=== PATIENT | female | born 1960 | race Caucasian/White ===

== ENCOUNTER 2017-02-24 07:39 | Outpatient (RCR) | payer OTHER ==
[2013-09-27 17:30] VITALS: BMI 20.2
[2017-02-24 08:43] VITALS: BP 119/82
== END 2017-02-28 13:06 | disposition home or self-care (01) ==
LOC: SPU 07:39
PROVIDERS: ATTEND Family Medicine
DX: E34.9 Endocrine disorder, unspecified (principal)
CPT/HCPCS: 36415; 82670; 84403

== ENCOUNTER → 2017-02-24 | Outpatient (CLI) | payer OTHER ==
[2013-09-27 17:30] VITALS: BMI 20.2
[~2017-02-24] MED LIST: ARI2 PO; ASCO-191 PO; CALC500T6 PO; CHOL500045 PO; CYCL1DRO6 OP; DES100PT PO; IBUP-56 PO; LACT1CAP6 PO; LAMOT150PT PO; LOR1 PO; LORA-802 PO; MAGN400C PO; MULT-885 PO; OMEG-11 PO; OMEG-23 PO; RANI-324 PO; RANI75TA5 PO; VITA1CAP46 PO; ZALE10CA95 PO
[2017-02-24 08:51] LABS: PLATELET COUNT, AUTOMATED 209 K/uL (150-450)
== END ==
LOC: SPU 08:28
PROVIDERS: ATTEND Nurse Practitioner Primary Care
DX: D50.9 Iron deficiency anemia, unspecified (principal)
CPT/HCPCS: 82040; 82247; 82310; 82374; 82435; 82565; 82728; 82947; 83540; 83550; 84075; 84132; 84155; 84295; 84450; 84460; 84520; 85025

== ENCOUNTER → 2017-04-02 | Outpatient (CLI) | payer OTHER ==
[2013-09-27 17:30] VITALS: BMI 20.2
--- NOTE | 2017-04-03 09:05 | RADIOLOGY IMAGING REPORT ---
FACILITY: [facility] [place] PATIENT NAME: LOLITA FELIPE : [id number] MR: [id number]: [id number] EXAM DATE: [id number] ORDERING PHYSICIAN: JHONY NORTON TECHNOLOGIST: Petrona Rangel PROCEDURE:BILATERAL DIGITAL SCREENING MAMMOGRAM WITH CAD ASSISTED INTERPRETATION & 3D TOMOSYNTHESIS COMPARISON:Prior mammograms 12/18/15, 04/19/13, 06/26/11, 06/17/11 INDICATIONS:SCREENING FINDINGS: Moderately heterogeneous fibroglandular tissue is seen throughout the breasts. The parenchymal pattern has remained stable allowing for difference in mammographic technique & patient positioning. There is no evidence of malignant appearing mass, malignant appearing calcifications or other secondary sign of malignancy in either breast. DIAGNOSTIC CATEGORY 1--NEGATIVE. RECOMMENDATIONS: ROUTINE MAMMOGRAM AND CLINICAL EVALUATION. IMPRESSION: BIRADS 1: Negative No significant abnormality is seen Dictated by: Argentina Morillo M.D. on 04/02/2017 at 17:03 Transcribed by: FIX on 04/03/2017 at 8:05 Approved by: Argentina Morillo M.D. on 04/03/2017 at 9:04 [facility]
== END ==
LOC: MAMO 00:13
PROVIDERS: ATTEND Nurse Practitioner Primary Care
DX: Z12.31 Encounter for screening mammogram for malignant neoplasm of breast (principal)
CPT/HCPCS: 77063; 77067

== ENCOUNTER 2017-05-16 09:12 | Emergency (ER) | payer OTHER ==
[2013-09-27 17:30] VITALS: Wt 61.7 kg
[2017-05-16 09:12] VITALS: BP 153/83
--- NOTE | 2017-05-16 09:25 | ER Report ---
History and Physical Time Seen By MD: 09:25 Hx. of Stated Complaint: pt reports needle stick, known source, ~0800 today- L thumb HPI/ROS CHIEF COMPLAINT: body fluid exposure, employee HISTORY OF PRESENT ILLNESS: This is a 56 year old female. She had a needle stick to her left thumb this morning after doing a blood draw on a patient. Butterfly needle, radial side of thumb. Has had Hep B vaccine and is a non- responder. Allergies: Coded Allergies: clarithromycin (Verified Allergy, Unknown, NAUSEA, 05/16/17) levofloxacin (Verified Allergy, Unknown, 05/16/17) Home Meds Reported Medications Ibuprofen (IBUPROFEN) 200 Mg Tablet, 2 TAB PO Q6H Y for PAIN/HEADACHE, TAB 07/10/16 Loratadine (CLARITIN) 10 Mg Tablet, 10 MG PO PRN 07/10/16 Ranitidine Hcl (ZANTAC) 150 Mg Tablet, 150 MG PO BID, TAB 07/10/16 [place]-3 Fatty Acids/Fish Oil (FISH OIL 1,000 MG SOFTGEL) 1 Each Capsule, 2 EACH PO, CAPSULE 07/10/16 Calcium Carbonate (CALCIUM) 500 Mg Tablet, 2000 MG PO DAILY 12/05/15 Cholecalciferol (Vitamin D3) (VITAMIN D) 5,000 Unit Tablet, 1 TAB PO QDAY, CAPSULE 12/05/15 Ascorbic Acid (VITAMIN C) 1,000 Mg Tablet, 1 TAB PO DAILY, TAB 12/05/15 Magnesium Oxide (MAGNESIUM) 400 Mg Capsule, 1 CAP PO QDAY, CAPSULE 12/05/15 Lactobacillus Combination No.4 (PROBIOTIC) 1 Each Capsule, 1 CAP PO QDAY, CAPSULE 12/05/15 Vitamin B Complex (VITAMIN B COMPLEX) 1 Each Capsule, 1 CAP PO QDAY, CAPSULE 12/05/15 Zaleplon (SONATA) 10 Mg Capsule, 1 TAB PO HS Y for INSOMNIA, CAPSULE 12/05/15 Lamotrigine (LAMICTAL) 150 Mg Tablet, 1 TAB PO DAILY 12/05/15 Desvenlafaxine Succinate (PRISTIQ ER) 100 Mg Tabcr, 100 MG PO DAILY 12/15/13 Reviewed Nurses Notes: Yes Hx Smoking: No Smoking Status: Never Smoker Exposure to Second Hand Smoke?: No Hx Substance Use Disorder: No Hx Alcohol Use: Yes Constitutional Vital Sign - Last 24 Hours 05/16/17 09:12 Temp 98.9 Pulse 77 Resp 16 B/P (MAP) 153/83 Pulse Ox 96 O2 Delivery Room Air Physical Exam General: Alert, no distress. Skin: Thumb with bandage, removed and site of small puncture difficult to see. Medical Decision Making ED Course/Re-evaluation ED Course Did not recommend taking any post-exposure prophylactic medicine. Will get blood from both the patient here and the source patient will need to be called to get blood work done. Decision to Disposition Date: May 16, 2017 Decision to Disposition Time: 09:38 Depart Departure Latest Vital Signs Vital Signs Date Time Temp Pulse Resp B/P (MAP) Pulse Ox O2 Delivery O2 Flow Rate FiO2 05/16/17 09:12 98.9 77 16 153/83 96 Room Air Impression: Primary Impression: Employee exposure to body fluids Condition: Improved Disposition: HOME OR SELF-CARE Referrals: JHONY NORTON DNP, [employer] (PCP) Patient Instructions: Body Substance Exposure (ED) Additional Instructions: Follow-up with employee health for further testing. No post-exposure prophylaxis needed unless unable to get the blood tests from the source patients. You are able to return to work at this time. MADELINE KING MD May 16, 2017 09:25
== END 2017-05-16 09:45 | disposition home or self-care (01) ==
LOC: ER 09:13
DX: Z77.21 Contact with and (suspected) exposure to potentially hazardous body fluids (principal); Y99.0 Civilian activity done for income or pay
CPT/HCPCS: 36415; 99281

== ENCOUNTER 2017-06-10 10:15 | Outpatient (RCR) | payer OTHER ==
[2013-09-27 17:30] VITALS: BMI 20.2
[2017-06-10 13:02] VITALS: BP 124/83
== END 2017-07-09 14:16 | disposition home or self-care (01) ==
LOC: SPU 10:15
PROVIDERS: ATTEND Nurse Practitioner Primary Care
DX: E61.1 Iron deficiency (principal)
CPT/HCPCS: 36415; 82728; 83540; 83550

== ENCOUNTER → 2017-06-10 | Outpatient (CLI) | payer OTHER ==
[2013-09-27 17:30] VITALS: BMI 20.2
[~2017-06-10] MED LIST changes: -RANI-324 PO; +RANI-366 PO
== END ==
LOC: SPU 13:10
PROVIDERS: ATTEND Obstetrics & Gynecology
DX: E34.9 Endocrine disorder, unspecified (principal)
CPT/HCPCS: 82670; 84403

== ENCOUNTER → 2017-06-17 | Outpatient (REF) ==
[2013-09-27 17:30] VITALS: BMI 20.2
[2017-06-17 10:06] LABS: LDL CHOLESTEROL 96 mg/dl
== END ==
DX: Z02.9 Encounter for administrative examinations, unspecified (principal)

== ENCOUNTER → 2017-08-05 | Outpatient (CLI) | payer OTHER ==
[2013-09-27 17:30] VITALS: BMI 20.2
[~2017-08-05] MED LIST changes: +[UNRECOGNIZED DRUG - OTHER]
== END ==
LOC: RESP 01:27
PROVIDERS: ATTEND Nurse Practitioner Primary Care
DX: I34.0 Nonrheumatic mitral (valve) insufficiency (principal); I36.1 Nonrheumatic tricuspid (valve) insufficiency
CPT/HCPCS: 93017; 93325; 93350

== ENCOUNTER 2017-09-08 08:49 | Outpatient (RCR) | payer OTHER ==
[2013-09-27 17:30] VITALS: BMI 20.2
[~2017-09-08 08:49] MED LIST changes: +MODA100T5 PO
[2017-09-08 09:43] VITALS: BP 124/87
== END 2017-10-10 09:01 | disposition home or self-care (01) ==
LOC: SPU 08:49
PROVIDERS: ATTEND Nurse Practitioner Primary Care
DX: E61.1 Iron deficiency (principal); E34.9 Endocrine disorder, unspecified
CPT/HCPCS: 36415; 82310; 82374; 82435; 82565; 82670; 82947; 84132; 84295; 84403; 84520

== ENCOUNTER → 2017-12-11 | Outpatient (CLI) | payer OTHER ==
[2013-09-27 17:30] VITALS: BMI 20.2
== END ==
LOC: SPU 08:08
PROVIDERS: ATTEND Physician Assistant
DX: E34.9 Endocrine disorder, unspecified (principal)
CPT/HCPCS: 36415; 82670; 84403